=== PATIENT | female | born 1980 | race Caucasian/White ===

== ENCOUNTER 2019-09-03 17:57 | Emergency (ER) | payer OTHER ==
[~2019-09-03] VITALS: Ht 175.3 cm; Wt 115.7 kg
[2019-09-03] MEDS ORDERED: CELEXA 20 MG TA20 MG PO (18:10)
[2019-09-03 18:18] LABS: URINE BILIRUBIN NEGATIVE (Negative); URINE BLOOD 3+ (Negative); URINE GLUCOSE-RANDOM NEGATIVE (Negative); URINE KETONES TRACE (Negative); URINE LEUKOCYTES TRACE (Negative); URINE NITRITE POSITIVE (Negative); URINE PROTEIN 2+ (Negative); URINE SPECIFIC GRAVITY >= 1.030 (1.005-1.030); URINE UROBILINOGEN 0.2 E.U./dl (0.2-1.0)
[2019-09-03 18:19] LABS: SQUAMOUS 0-3 Few /LPF (0-3); URINE CLARITY CLOUDY; URINE COLOR RED
[2019-09-03 18:20] LABS: BACTERIA None Seen /HPF (None Seen); CASTS None Seen /LPF (None Seen); CRYSTALS None Seen /LPF (None Seen); URINE RBC >20 Many /HPF (0-2); URINE WBC 0-5 Rare /HPF (0-5)
[2019-09-03 18:33] LABS: ABSOLUTE BASOPHILS 0.1 thou/uL (0.0-0.2); ABSOLUTE EOSINOPHILS 0.2 thou/uL (0.0-0.7); ABSOLUTE LYMPHOCYTES 3.1 thou/uL (0.8-5.3); ABSOLUTE MONOCYTES 0.7 thou/uL (0.0-1.2); BASOPHILS 0.9 %; EOSINOPHILS 2.2 %; HEMOGLOBIN 13.9 gm/dL (12.0-15.0); LYMPHOCYTES 34.5 %; MCH 32.7 pg (26.0-34.0); MCHC 35.6 g/dL (28.0-37.0); MONOCYTES 7.4 %; MPV 8.7 fl. (7.2-11.1); NUCLEATED RBCS 0 /100WBC; PLATELET COUNT* 264 thou/uL (150-400); RBC 4.24 mil/uL (4.20-5.00); RDW-CV 12.5 % (10.5-14.5); WBC 9.1 thou/uL (4.0-11.0)
[2019-09-03 18:39] LABS: CALCIUM 8.4 mg/dL (8.5-10.1); POTASSIUM 3.7 mmol/L (3.5-5.1)
[2019-09-03 18:43] LABS: ALBUMIN 3.7 g/dL (3.4-5.0); TOTAL BILIRUBIN 0.2 mg/dL (<0.1-1.0); TOTAL PROTEIN 7.7 g/dL (6.4-8.2)
[2019-09-03 19:07] LABS: APTT 27.3 Seconds (25.0-31.3); INR 1.1; PROTIME 10.8 Seconds (9.20-11.50)
[2019-09-03] MEDS ORDERED: PROVERA10 MG PO (21:22)
[2019-09-03 21:38] VITALS: BP 128/78
--- NOTE | 2019-09-04 10:41 | EKG ---
[place] [address] ELECTROCARDIOGRAM REPORT Name: DEBBIEDEE DEE Tiffany Room: [facility]#: [id number] Admission: 09/03/19 Attend Phys: Discharge: 09/03/19 Date of : 80 Report #: [id number] THIS REPORT FOR: //name// [facility] ED Test Date: 2019-09-03 Test Time: 18:22:22 Pat Name: DEE DEE LEWIS Department: Room: Gender: F [employer] Rolling Machine Operator: : 1980 Requested By: Dejah Dorado Order Number: [id number] MD: Juan Winchester Measurements Intervals [place] Rate: 87 P: 36 MO: 134 QRS: 31 QRSD: 90 T: 60 QT: 363 QTc: 437 Interpretive Statements Sinus rhythm No previous ECG available for comparison Electronically Signed On 09-04-2019 10:40:20 [employer] by Juan Winchester [email or web address] <ELECTRONICALLY SIGNED> By: Juan Winchester MD, [facility] 09/04/19 1040 1822 1822 Juan Winchester MD, FACC /EPI
== END 2019-09-03 21:51 | disposition home or self-care (01) ==
LOC: M.ERS 17:57
PROVIDERS: Physician Assistant
DX: N83.202 Unspecified ovarian cyst, left side (principal); R42 Dizziness and giddiness; M32.9 Systemic lupus erythematosus, unspecified; E66.01 Morbid (severe) obesity due to excess calories; Z68.37 Body mass index [BMI] 37.0-37.9, adult; Z90.89 Acquired absence of other organs

== ENCOUNTER 2021-02-07 22:48 | Emergency (ER) | payer BC ==
[~2021-02-07] VITALS: Ht 175.3 cm; Wt 118.8 kg
[~2021-02-07 22:48] MED LIST: CELEXA 20 MG TA20 MG PO; PROVERA10 MG PO
[2021-02-07] MEDS ORDERED: CYCLOBENZAPRINE5 MG PO (23:01)
[2021-02-08 00:30] VITALS: BP 167/79
== END 2021-02-08 00:30 | disposition home or self-care (01) ==
LOC: M.ERS 22:48
DX: S63.621A Sprain of interphalangeal joint of right thumb, initial encounter (principal); M32.9 Systemic lupus erythematosus, unspecified; E66.01 Morbid (severe) obesity due to excess calories; Z68.38 Body mass index [BMI] 38.0-38.9, adult; Z90.89 Acquired absence of other organs; W22.8XXA Striking against or struck by other objects, initial encounter; Y93.89 Activity, other specified; Y92.89 Other specified places as the place of occurrence of the external cause; Y99.8 Other external cause status